=== PATIENT | male | born 1985 | race Caucasian/White ===

== ENCOUNTER 2019-12-09 00:35 | Emergency (ER) | payer MEDICAID ==
[~2019-12-09] VITALS: Ht 182.9 cm; Wt 106.6 kg
[2019-12-09 00:45] VITALS: BP 181/83
--- NOTE | 2019-12-09 00:45 | NUR ---
ED Nurse Note: Pt ambulated to ED from home c/o heart palpitations, pt denies heart history or truama, -t Addendum: 12/09/19 at 0112 by [facility] ED Nurse Note: Pt states that he has anxiety but has never felt like this before. States he is compliant with anxiety medication, VSS except BP 152/88, ERMD at bedside. Pt A&Ox4
[2019-12-09 01:11] LABS: BASOPHILS % (AUTO) 1.5 % (0.0-2.0); HEMATOCRIT 40.2 % (42.0-52.0); LYMPHOCYTES % (AUTO) 38.7 % (20.0-45.0); MEAN CORPUSCULAR VOLUME 90 FL (80-99); MONOCYTES % (AUTO) 8.9 % (1.0-10.0); PLATELET COUNT 186 K/UL (150-450); RED BLOOD COUNT 4.46 M/UL (4.70-6.10); RED CELL DISTRIBUTION WIDTH 11.1 % (11.6-14.8); WHITE BLOOD COUNT 8.2 K/UL (4.8-10.8)
--- NOTE | 2019-12-09 01:18 | Emergency Room Report ---
History of Present Illness General Chief Complaint: Palpitations Present Illness HPI Disclaimer: Please note that this report is being documented using [employer] technology. This can lead to erroneous entry secondary to incorrect interpretation by the dictating instrument. HPI: 34-year-old male history of anxiety presents for palpitations. He states he has intermittent palpitations fairly frequently but worse tonight. He states they have been persistent for approximately 25 minutes. He states he did drink couple coffee today. No chest pain shortness of breath fever nausea or vomiting. Does have a history of anxiety and states he was feeling anxious on arrival. PMH: Anxiety PSH: Reviewed Social Hx: Denies smoking drinking or illicit drug use Allergies: Uncoded Allergies: SULFA (Allergy, Unknown, 12/09/19) COVID-19 Screening Contact w/high risk pt: No Recent Travel to affected area: No Experienced COVID-19 symptoms?: No Patient History Reviewed Nursing Documentation: PMH: Agreed; PSxH: Agreed Nursing Documentation-PMH History Of Psychiatric Problem: Yes - anxiety Review of Systems All Other Systems: negative except mentioned in HPI Physical Exam Vital Signs Date Time Temp Pulse Resp B/P (MAP) Pulse Ox O2 Delivery O2 Flow Rate FiO2 12/09/19 00:37 97.7 87 18 181/83 (115) 97 Room Air Sp02 EP Interpretation: reviewed, normal General Appearance: well appearing, no apparent distress Head: normocephalic, atraumatic Eyes: bilateral eye PERRL, bilateral eye EOMI ENT: hearing grossly normal, moist mucus membranes Neck: full range of motion, supple Respiratory: lungs clear, normal breath sounds, no rhonchi, no respiratory distress, no retraction, no wheezing Cardiovascular #1: normal peripheral pulses, regular rate, rhythm, no murmur Gastrointestinal: non tender, soft, non-distended, no guarding Neurologic: alert, oriented x3, no focal defects Skin: normal color, warm/dry Medical Decision Making ER Course MDM: 34-year-old male presents for palpitations. Differential included but not limited to PACs, anxiety, stress reaction, electrolyte disturbance to name a few Clinical course-EKG completed and showed evidence of PACs. Otherwise no arrhythmia or other acute changes. Labs - mild hypokalemia noted On reevaluation: Patient's blood pressure improved symptoms had resolved Plan-patient was given potassium supplementation in the ER. Otherwise stable for discharge with outpatient follow-up. Given return precautions. Last Vital Signs Date Time Temp Pulse Resp B/P (MAP) Pulse Ox O2 Delivery O2 Flow Rate FiO2 12/09/19 00:37 97.7 87 18 181/83 (115) 97 Room Air Status: improved Disposition: HOME, SELF-CARE Condition: Improved Referrals: NOT CHOSEN MEAGAN/,REFERRING (PCP) Jered Veras M.D. December 09, 2019 01:17
[2019-12-09 01:25] LABS: ANION GAP 9 mmol/L (5-15); BLOOD UREA NITROGEN 15 mg/dL (7-18); CALCIUM 9.2 MG/DL (8.5-10.1); CARBON DIOXIDE 27 MMOL/L (21-32); CHLORIDE 102 MMOL/L (98-107); CREATININE 1.3 MG/DL (0.55-1.30); POTASSIUM 3.4 MMOL/L (3.5-5.1); SODIUM 138 MMOL/L (136-145)
[2019-12-09 01:30] LABS: ALANINE AMINOTRANSFERASE 60 U/L (12-78); ALBUMIN 4.1 G/DL (3.4-5.0); ALBUMIN/GLOBULIN RATIO 1.2 (1.0-2.7); ALKALINE PHOSPHATASE 88 U/L (46-116); ASPARTATE AMINO TRANSFERASE 25 U/L (15-37); BILIRUBIN,TOTAL 0.2 MG/DL (0.2-1.0)
[2019-12-09 01:45] VITALS: BP 181/83
--- NOTE | 2019-12-09 01:45 | NUR ---
ER DISCHARGE NOTE: Patient is cleared to be discharged per ERMD, pt is aox4, on room air, with stable vital signs. pt was given dc and prescription instructions, pt was able to verbalize understanding, pt id band and iv site removed without complications. pt is able to ambulate with steady gait. pt took all belongings.
== END 2019-12-09 01:45 | disposition home or self-care (01) ==
LOC: EMR 00:48
DX: R00.2 Palpitations (principal); F41.9 Anxiety disorder, unspecified; Z88.2 Allergy status to sulfonamides; E87.6 Hypokalemia
CPT/HCPCS: 36415; 80053; 84484; 85025; Z7502; 99283; J8499